=== PATIENT | female | born 1960 | race Caucasian/White ===

== ENCOUNTER → 2016-11-19 | Outpatient (CLI) | payer BC, MEDICARE ==
--- NOTE | ~2016-11-19 | MR2 ---
[facility] A Service of [facility] RADIOLOGY TEXT RESULTS PATIENT: EUGENE CHATMAN LOCATION: [facility] : 60 UNIT #: [id number] AGE: [address]: Gus Smalls MD SEX: F ORDER DR: [id number] [place] [id number] O MR#: [id number] Acc #: [id number] NAME: EUGENE CHATMAN : 1960 SEX: F STUDY DATE/TIME: 11/19/2016 9:03 UNIT: [facility] ROOM: STUDY DESCRIPTION: MR Abdomen WWo Cont Attending Physician: Gus Smalls M.D. Referring Physician: Gus Smalls M.D. Ordering Physician: Gus Smalls M.D. Primary Care Physician: Kirby Dougherty M.D. [facility] REPORT This report is preliminary unless electronic signature is present. EXAM MRI abdomen with and without contrast. INDICATION Cirrhosis. Observation for hepatocellular carcinoma. PROCEDURE Multiplanar, multisequence MR imaging of the abdomen prior to and following 20 mL of MultiHance. COMPARISON 08/07/2016 FINDINGS ABDOMEN WITHOUT CONTRAST: Cirrhotic morphology of the liver. Liver enlarged measuring 20.7 cm. There may be very mild hepatic steatosis. The spleen is enlarged measuring 18.9 cm. No ascites. 1.9 cm cyst lower pole of the left kidney. The adrenal glands, pancreas have normal signal. Previous cholecystectomy. The bowel loops are nondilated. ABDOMEN WITH CONTRAST: No liver mass. Hepatic artery is patent. The portal, splenic, superior mesenteric veins are patent. There is no abnormal enhancement elsewhere in the abdomen. There is a small focus of enhancement along the posterolateral lower right chest wall not seen on the previous study. IMPRESSION 1. Cirrhosis. Splenomegaly. No evidence for hepatocellular carcinoma. 2. Hepatic vessels are patent. [facility] A Service of [facility] RADIOLOGY TEXT RESULTS PATIENT: EUGENE CHATMAN LOCATION: [facility] : 60 UNIT #: [id number] AGE: [address]: Gus Smalls MD SEX: F ORDER DR: 3. Small focus of enhancement along the posterolateral lower right chest wall. It is nonspecific, but may represent a healing rib fracture. Correlate with any relevant history. Dictated by... Ezra Nolasco M.D. THIS IS AN ELECTRONICALLY VERIFIED REPORT Ezra Nolasco M.D. at 11/20/2016 7:19 AM JATIN/kathryn TD: 11/19/2016 22:43 JOB #: [id number] MRI CENTER REPORT Page 1 of 1
== END | disposition home or self-care (01) ==
LOC: SMRI 08:38
DX: K76.89 Other specified diseases of liver (principal); K74.60 Unspecified cirrhosis of liver; R16.1 Splenomegaly, not elsewhere classified
CPT/HCPCS: 74183; A9581